=== PATIENT | male | born 2000 | race Caucasian/White ===

== ENCOUNTER 2018-05-14 02:23 | Emergency (ER) | payer SELFPAY ==
[2018-05-14 02:39] LABS: BASO # 0.1 (0.0-0.2); BASO % 0.8 % (0.0-2.0); EOS # 0.1 (0.0-0.7); EOS % 1.3 % (0-4.0); GRAN # 3.9 (1.4-6.5); GRAN % 48.4 % (42.2-75.2); HEMATOCRIT 41.5 % (36.0-47.0); HEMOGLOBIN 14.5 g/dl (12.5-16.1); LYMPH # 3.4 (1.2-3.4); LYMPH % 42.2 % (20.0-51.0); MEAN CELL VOLUME 90 fl (80.0-95.0); MEAN CORPUSCULAR HEMOGLOBIN 32 pg (26.0-32.0); MEAN CORPUSCULAR HGB CONC 35 g/dl (33.0-37.0); MEAN PLATELET VOLUME 9.2 fl (7.4-10.4); MONO # 0.6 (0.1-0.6); MONO % 6.9 % (1.7-9.3); PLATELET COUNT 279 K/mm3 (130-400)
[2018-05-14 02:48] LABS: ALBUMIN 4.6 gm/dL (3.5-5.0); BILIRUBIN,TOTAL 0.4 mg/dL (0.0-1.0); CALCIUM 8.3 mg/dL (8.4-10.2); CREATININE, serum 0.99 mg/dL (0.66-1.25); POTASSIUM 3.2 mmol/L (3.4-5.0); TOTAL PROTEIN 7.6 gm/dL (6.4-8.2)
[2018-05-14] MEDS ORDERED: ADDERALL10 MG PO (07:03)
[2018-05-14 07:35] VITALS: BP 125/78; PULSE 66
== END 2018-05-14 07:35 | disposition home or self-care (01) ==
LOC: COL.ER 02:23
PROVIDERS: Emergency Medicine
DX: F10.129 Alcohol abuse with intoxication, unspecified (principal); Y90.8 Blood alcohol level of 240 mg/100 ml or more
CPT/HCPCS: J2405; J3480; J7030

== ENCOUNTER 2018-12-13 17:48 | Emergency (ER) | payer OTHER ==
[~2018-12-13] VITALS: Ht 182.9 cm; Wt 81.8 kg
[~2018-12-13 17:48] MED LIST: ADDERALL10 MG PO
[2018-12-13 17:52] VITALS: TEMP 97.1
[2018-12-13 19:55] VITALS: BP 126/64; PULSE 86
== END 2018-12-13 19:55 | disposition home or self-care (01) ==
LOC: COL.ER 17:48
DX: S93.401A Sprain of unspecified ligament of right ankle, initial encounter (principal); X50.0XXA Overexertion from strenuous movement or load, initial encounter; Y92.219 Unspecified school as the place of occurrence of the external cause; Y93.67 Activity, basketball
CPT/HCPCS: Q4045